=== PATIENT | female | born 1975 | race African-American/Black ===

== ENCOUNTER 2019-02-13 11:11 | Emergency (ER) | payer MEDICARE, OTHER ==
[~2019-02-13] VITALS: Ht 142.2 cm; Wt 61.4 kg
--- NOTE | 2019-02-13 12:55 | REP ---
Clinical: Chest pain. Comparison: None. Findings: Mediastinum and cardiac silhouette are relatively normal for portable examination. No focal consolidation, effusion, or pneumothorax. Skeletal structures intact. Impression: No focal consolidation or obvious acute process. Electronically Signed by Kvng Garza MD 02/13/2019 12:46 P
[2019-02-13] MEDS ORDERED: METO37.5 PO (13:22)
[2019-02-13 13:25] LABS: BASO % 0.3 % (0.0-1.0); EOS # 0.2 10^3/uL (0.0-0.5); EOS % 1.4 % (0.0-3.0); HEMATOCRIT 37.3 % (36.0-47.0); HEMOGLOBIN 12.2 g/dl (12.0-15.5); LYMPH # 2.6 10^3/uL (1.5-5.0); LYMPH % 24.6 % (24.0-44.0); MEAN CORPUSCULAR HEMOGLOBIN 28.8 pg (27.0-33.0); MEAN CORPUSCULAR HGB CONC 32.7 g/dl (32.0-36.5); MONO # 0.5 10^3/uL (0.0-0.8); MONO % 4.4 % (0.0-5.0); NEUTROPHILS # 7.3 10^3/uL (1.5-8.5); NEUTROPHILS % 69.1 % (36.0-66.0); PLATELET COUNT, AUTOMATED 308 10^3/uL (150-450); RED BLOOD COUNT 4.24 10^6/uL (4.00-5.40); WHITE BLOOD COUNT 10.5 10^3/uL (4.0-10.0)
[2019-02-13] MEDS ORDERED: CLONI1TA PO (13:26)
[2019-02-13] MEDS ORDERED: BACL10TA2 PO (13:26)
[2019-02-13] MEDS ORDERED: VOLT1GEL15 TOP (13:26)
[2019-02-13] MEDS ORDERED: LAMO100T80 PO (13:26)
[2019-02-13] MEDS ORDERED: cloNIDine 0.2 MG TAB PO ONE (13:30)
[2019-02-13] MEDS ORDERED: FOLI1TAB11 PO (13:31)
[2019-02-13] MEDS ORDERED: LEVE1INJ5 SC (13:31)
[2019-02-13] MEDS ORDERED: ATOR40TA75 PO (13:31)
[2019-02-13] MEDS ORDERED: VITATAB26 PO (13:31)
[2019-02-13] MEDS ORDERED: KEPP250T5 PO (13:31)
[2019-02-13 13:53] LABS: INR 1.04; PROTHROMBIN TIME 13.3 SECONDS (11.8-14.0)
[2019-02-13 13:56] LABS: ALBUMIN 4.2 GM/DL (3.2-5.2); ALT/SGPT 27 U/L (12-78); BILIRUBIN,DIRECT 0.2 MG/DL (0.0-0.2); BILIRUBIN,TOTAL 0.8 MG/DL (0.2-1.0); BLOOD UREA NITROGEN 11 MG/DL (7-18); CALCIUM LEVEL 10.1 MG/DL (8.5-10.1); CARBON DIOXIDE LEVEL 29 MEQ/L (21-32); CHLORIDE LEVEL 106 MEQ/L (98-107); CK-MB VALUE MASS < 1.0 NG/ML (<3.6); CPK CREATINE PHOSPHOKINASE 99 U/L (26-192); CREATININE FOR GFR 1.23 MG/DL (0.55-1.30); D-DIMER QUANT 804.25 ng/ml (<500); GLOMERULAR FILTRATION RATE > 60.0 (>58); GLUCOSE, FASTING 91 MG/DL (70-100); LIPASE 94 U/L (73-393); MB/CK RELATIVE INDEX 1.01 (< OR =4); NT-PRO BNP 382 PG/ML (<125); POTASSIUM SERUM 4.2 MEQ/L (3.5-5.1); SODIUM LEVEL 139 MEQ/L (136-145); TOTAL PROTEIN 8.1 GM/DL (6.4-8.2); TROPONIN I 0.08 NG/ML (< 0.10)
[2019-02-13] MEDS ORDERED: ISOVUE-370 76% 100ML VIAL (Q9967) As Ordered ONE (14:12)
[2019-02-13] MEDS ORDERED: HYDROMORPHONE HCL 0.5 MG/ 0.5 ML SYRINGE (J1170 PER 1) IV PRN (14:45)
[2019-02-13] MEDS ORDERED: HYDROmorphone 2 MG TAB PO ONE (15:15)
--- NOTE | 2019-02-13 15:40 | REP ---
CT pulmonary angiogram: With IV contrast. History: Chest pain short of breath. Elevated D-dimer. Rule out pulmonary embolus. Comparison studies: Comparison portable chest x-ray is from earlier today. Contrast dose: 75 mL of Isovue [address] technique: Helical scanning is acquired and overlapping 1.5 mm and contiguous 3 mm axial images are reformatted. In addition, maximum intensity projection and multiplanar re-formation images are generated in sagittal and coronal imaging projections. CT pulmonary angiographic findings: There is good opacification of the pulmonary arterial tree. There is no CT evidence of pulmonary embolism. Thoracic aorta enhances homogeneously. There is no evidence of aneurysm or dissection. There is a small area of focal myocardial thinning at the left ventricular apex which raises a question of prior myocardial infarction. There is minimal vascular calcification of the aortic arch. No hilar or mediastinal mass or adenopathy is observed. No pleural or pericardial effusion is appreciated. The lung de la o are clear. No bony abnormality is seen. Exam is otherwise unremarkable. Impression: No CT evidence of pulmonary embolus. No thoracic aortic disease seen. There is however focal myocardial thinning at the left ventricular apex, question previous transmural myocardial infarction. Electronically Signed by Pawel Mac MD 02/13/2019 04:04 P
[2019-02-13] MEDS ORDERED: FIORICET TAB PO ONE (15:45)
[2019-02-13 17:34] LABS: CK-MB VALUE MASS < 1.0 NG/ML (<3.6); CPK CREATINE PHOSPHOKINASE 96 U/L (26-192); MB/CK RELATIVE INDEX 1.04 (< OR =4); TROPONIN I 0.08 NG/ML (< 0.10)
[2019-02-13] MEDS ORDERED: ONDA4TAB6 PO (18:28)
[2019-02-13] MEDS ORDERED: FIOR1CAP PO (18:28)
[2019-02-13] MEDS ORDERED: PRED10TA2 PO (18:28)
[2019-02-13] MEDS ORDERED: HYDR2TAB2 PO (18:28)
[2019-02-13] MEDS ORDERED: methylPREDNISolone INJ 125 MG/2 ML VIAL (J2930) IV ONE (18:30)
[2019-02-13 18:48] VITALS: BP 179/81
--- NOTE | 2019-02-16 07:34 | ECGEPIP ---
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
--- NOTE | 2019-02-16 07:35 | ECGEPIP ---
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
== END 2019-02-13 19:01 | disposition home or self-care (01) ==
LOC: M ED 11:11
DX: G35 Multiple sclerosis (principal); R07.89 Other chest pain; G43.909 Migraine, unspecified, not intractable, without status migrainosus; R06.02 Shortness of breath; I10 Essential (primary) hypertension; Z79.899 Other long term (current) drug therapy; Z88.0 Allergy status to penicillin; Z88.1 Allergy status to other antibiotic agents; Z88.2 Allergy status to sulfonamides; Z88.5 Allergy status to narcotic agent; Z88.8 Allergy status to other drugs, medicaments and biological substances
CPT/HCPCS: 71045; 71275; 80048; 80076; 82550; 82553; 83690; 83880; 84443; 84484; 85025; 85379; 85610; 85730; 93005; 93041; 94760; 96374; 96375; 99285; J1170; J2930; Q9967